=== PATIENT | female | born 1945 | race Caucasian/White ===

== ENCOUNTER 2021-10-01 08:44 | Emergency (ER) | payer MEDICARE, BC ==
[~2021-10-01] VITALS: Ht 160 cm; Wt 86.4 kg
[~2021-10-01 08:44] MED LIST: ASPI-1265 PO; CHOL200012 PO; LOVA20TA2 PO; MULT-1085 PO; SOTA80TA73 PO; VIT-9 PO
[2021-10-01] MEDS ORDERED: ondansetron/PF 4mg/2ml inj IV ONE (11:35)
[2021-10-01] MEDS ORDERED: HYDROcodone/acetaminophen 5mg/325mg tablet PO ONE (11:35)
[2021-10-01] MEDS ORDERED: normal saline 1000ML IV soln IVB ONE (11:35)
[2021-10-01] MEDS ORDERED: iohexol 300mg/ml 100ml inj. ONE (11:54)
[2021-10-01] MEDS ORDERED: HYDR-3964 PO (13:55)
[2021-10-01] MEDS ORDERED: ONDA4TAB6 PO (13:55)
[2021-10-01 13:59] VITALS: BP 176/86
[2021-10-01] MEDS ORDERED: WALKERFR (13:59)
== END 2021-10-01 14:29 | disposition home or self-care (01) ==
LOC: ER 08:45
DX: M25.552 Pain in left hip (principal); M54.50 Low back pain, unspecified; I48.91 Unspecified atrial fibrillation; E11.9 Type 2 diabetes mellitus without complications; Z91.030 Bee allergy status; Z79.82 Long term (current) use of aspirin; Z79.899 Other long term (current) drug therapy; Z79.01 Long term (current) use of anticoagulants; W18.30XA Fall on same level, unspecified, initial encounter; Z91.81 History of falling; Y93.89 Activity, other specified; Y92.89 Other specified places as the place of occurrence of the external cause; Y99.8 Other external cause status
CPT/HCPCS: 73502; 74177; 96374; 99285; J2405; J7030; Q9967

== ENCOUNTER 2022-01-01 12:04 | Emergency (ER) | payer MEDICARE, BC ==
[~2022-01-01] VITALS: Ht 154.9 cm; Wt 86.4 kg
[~2022-01-01 12:04] MED LIST changes: +ONDA4TAB6 PO; +WALKERFR
[2022-01-01 12:20] VITALS: BP 217/75
== END 2022-01-01 14:28 | disposition home or self-care (01) ==
LOC: ER 12:05
DX: J06.9 Acute upper respiratory infection, unspecified (principal); Z20.822 Contact with and (suspected) exposure to COVID-19; R09.89 Other specified symptoms and signs involving the circulatory and respiratory systems; R05.9 Cough, unspecified; I48.91 Unspecified atrial fibrillation; E11.9 Type 2 diabetes mellitus without complications; Z79.82 Long term (current) use of aspirin; Z79.899 Other long term (current) drug therapy
CPT/HCPCS: 71045; 87502; 87503; 87635; 99284; C9803

== ENCOUNTER 2022-11-08 10:36 | Emergency (ER) | payer MEDICARE, BC | END 2022-11-08 11:06 | disposition left against medical advice (07) | LOC: ER 10:36 | DX: H92.09 Otalgia, unspecified ear (principal); Z53.21 Procedure and treatment not carried out due to patient leaving prior to being seen by health care provider ==

== ENCOUNTER 2023-01-14 07:18 | Day surgery (SDC) | payer MEDICARE, BC ==
[2023-01-08 15:13] LABS: BASOPHILS % (AUTO) 0.9 % (0-1); EOSINOPHILS # (AUTO) 0.2 X10'3 (0-0.9); EOSINOPHILS % (AUTO) 2.9 % (0-6); LYMPHOCYTES # (AUTO) 2.2 X10'3 (1.1-4.8); LYMPHOCYTES % (AUTO) 38.7 % (21-51); MEAN CORPUSCULAR HGB CONC 34.3 g/dL (33.0-36.5); MEAN CORPUSCULAR VOLUME 87.7 FL (78-98); MEAN PLATELET VOLUME 6.8 FL (7.4-10.4); MONOCYTES # (AUTO) 0.6 X10'3 (0-0.9); MONOCYTES % (AUTO) 9.7 % (2-12); NEUTROPHILS # (AUTO) 2.7 X10'3 (1.8-7.7); NEUTROPHILS % (AUTO) 47.8 % (42-75); PRE OP HEMOGLOBIN 15.1 g/dL (12.0-16.0); PRE OP PLATELET COUNT 163 X10'3 (140-440); RED BLOOD COUNT 5.02 X10'6 (4.20-5.60); RED CELL DISTRIBUTION WIDTH 12.7 % (11.5-14.5)
[2023-01-08 15:24] LABS: ALBUMIN 3.9 G/DL (3.4-5.0); ALKALINE PHOSPHATASE 67 IU/L (46-116); BLOOD UREA NITROGEN 13 MG/DL (7-18); BUN/CREATININE RATIO 18.1 (10.0-20.0); CALCIUM 9.9 MG/DL (8.5-10.1); CHLORIDE 102 MMOL/L (99-107); CREATININE 0.72 MG/DL (0.40-0.90); PRE OP ALT 31 U/L (30-65); PRE OP ANION GAP 4 (8-16); PRE OP AST 28 U/L (10-37); PRE OP BILIRUB, TOTAL 0.4 MG/DL (0.0-1.0); PRE OP GLUCOSE 96 MG/DL (70-104); PRE OP SODIUM 139 MMOL/L (135-145); TOTAL CARBON DIOXIDE 33.3 MMOL/L (24-32); TOTAL PROTEIN 7.8 G/DL (6.4-8.2); eGFR 79 ML/MIN
[~2023-01-14] VITALS: Ht 154.9 cm; Wt 90.7 kg
[2023-01-14] VITALS (8 sets, daily range): BP systolic 133–180; BP diastolic 63–101
[~2023-01-14 07:18] MED LIST changes: -ASPI-1265 PO; +DOCUMENT DATE & TIME OF BETA-BLOCKER PO ONE; +FLUT16SP26 NS; -LOVA20TA2 PO; -ONDA4TAB6 PO; +RIVA20TA PO; +SIMV-42 PO; -WALKERFR; +cefazolin 2gm/D5W 100mL 100 ML IV ONE; +famotidine 20mg tablet PO ONE; +ringers solution, lacted 1,000 ML IV SCH
[2023-01-14] MEDS ORDERED: morphine 4 MG/ML inj SYRINge IV PRN ×2 (08:40→10:15)
[2023-01-14] MEDS ORDERED: ondansetron/PF 4mg/2ml inj IV PRN ×2 (08:40→10:15)
[2023-01-14] MEDS ORDERED: labetalol 20mg/4ml (5mg/ml) syringe IV PRN ×2 (08:40→10:15)
[2023-01-14] MEDS ORDERED: hydrALAZINE 20mg/ml inj. IV PRN ×2 (08:40→10:15)
[2023-01-14] MEDS ORDERED: morphine 2 MG/ML inj. syringe IV PRN ×2 (08:40→10:15)
[2023-01-14] MEDS ORDERED: fentaNYL/PF 50MCG/1 ML 2ML syringe IV PRN ×4 (08:40→10:15)
[2023-01-14] MEDS ORDERED: ringers solution, lacted 1,000 ML IV SCH ×2 (08:40→10:15)
[2023-01-14] MEDS ORDERED: midazolam 1 mg/ML 2ml injection ONE (09:43)
[2023-01-14] MEDS ORDERED: fentaNYL/PF 50MCG/1 ML 2ML syringe ONE (09:43)
[2023-01-14] MEDS ORDERED: BUPIVAcaine/PF 2.5 mg/ml (0.25%) 30ml vial ONE (09:45)
[2023-01-14] MEDS ORDERED: propofol inj 20 ML IV ONE ×2 (09:45→09:59)
[2023-01-14] MEDS ORDERED: LIDOcaine 2% (20mg/ml) 5ml vial ONE ×2 (09:45→09:59)
[2023-01-14] MEDS ORDERED: LIDOcaine 1% 30ml preserv. free vial ONE (09:45)
[2023-01-14] MEDS ORDERED: dexamethasone sod phosphate 4mg/ml inj. ONE (09:47)
[2023-01-14] MEDS ORDERED: rocuronium 10mg/ml inj IV ONE (09:47)
[2023-01-14] MEDS ORDERED: sevoflurane 250ml liquid IH ONE (09:47)
[2023-01-14] MEDS ORDERED: ondansetron/PF 4mg/2ml inj ONE (09:59)
[2023-01-14] MEDS ORDERED: BUPIVAcaine/PF 2.5 mg/ml (0.25%) 30ml vial IJ ONE (10:15)
[2023-01-14] MEDS ORDERED: glycopyrrolate 0.2mg/ml inj ONE (10:18)
[2023-01-14] MEDS ORDERED: neostigmine methylsulfate 1 MG/ML 10ml vial ONE (10:20)
[2023-01-14] MEDS ORDERED: labetalol 20mg/4ml (5mg/ml) syringe IV ONE (10:46)
--- NOTE | 2023-01-14 10:59 | NUR ---
Received from OR via , accompanied by Anesthesiologist SILVER AND OR NURSE and report given by Anesthesiolgist. PT IS DROWSY YET RESPONDS TO VERBAL STIMULI. DENIES PAIN OR DISCOMFORT. INCISION ON LEFT BUTTOCKS WITH STITCHES AND DERMABOND. VSS Addendum: 01/14/23 at 1243 by Natalie Gonzales RN Amended: Links added.
[2023-01-14] MEDS ORDERED: HYDROcodone/acetaminophen 5mg/325mg tablet PO PRN (11:00)
--- NOTE | 2023-01-14 12:29 | NUR ---
ALL DISCHARGE CRITERIA HAS BEEN MET. VSS, PAIN AT A TOLERABLE LEVEL, VOIDING AND ABLE TO SAFELY AMBULATE AND TRANSFER SELF. IV TAKEN OUT WITHOUT ANY COMPLICATIONS. ALL DISCHARGE INSTRUCTIONS COVERED WITH PATIENT AND ALL QUESTIONS ANSWERED. PATIENT TAKEN OUT VIA WHEELCHAIR TO PERSONAL VEHICLE WHERE FAMILY/FRIEND DROVE PATIENT HOME. Addendum: 01/14/23 at 1247 by Natalie Gonzales RN Amended: Links added.
== END 2023-01-14 12:29 | disposition home or self-care (01) ==
LOC: PAS 07:18
PROVIDERS: ATTEND Surgery
DX: R22.2 Localized swelling, mass and lump, trunk (principal); D17.1 Benign lipomatous neoplasm of skin and subcutaneous tissue of trunk; E66.01 Morbid (severe) obesity due to excess calories; I48.91 Unspecified atrial fibrillation; Z79.899 Other long term (current) drug therapy; Z98.890 Other specified postprocedural states; Z95.0 Presence of cardiac pacemaker
CPT/HCPCS: 21931; 36415; 80053; 82948; 85025; 93005; J0690; J2250; J2405; J2704; J2710; J3010; J3490; J7030; J7120; Z7506; Z7508; Z7512; 88304; A4215; A4618; A7000; J1100

== ENCOUNTER 2024-04-30 06:46 | Day surgery (SDC) | payer MEDICARE, BC ==
[~2024-04-30] VITALS: Ht 154.9 cm; Wt 92.0 kg
[2024-04-30] VITALS (8 sets, daily range): BP systolic 144–232; BP diastolic 46–90; PULSE 70–77; RESP 16; TEMP 97.8; O2SAT 92–96
[2024-04-30] MEDS: normal saline 1000ml 1,000 ML IV SCH (05:30)
[~2024-04-30 06:46] MED LIST changes: -DOCUMENT DATE & TIME OF BETA-BLOCKER PO ONE; -famotidine 20mg tablet PO ONE; -ringers solution, lacted 1,000 ML IV SCH
[2024-04-30] MEDS ORDERED: LOSA25TA41 PO (07:16)
[2024-04-30 07:52] LABS: BASOPHILS # (AUTO) 0.1 X10'3 (0-0.2); BASOPHILS % (AUTO) 0.9 % (0-1); EOSINOPHILS # (AUTO) 0.1 X10'3 (0-0.9); EOSINOPHILS % (AUTO) 2.6 % (0-6); HEMATOCRIT 41.5 % (35.0-45.0); HEMOGLOBIN 14.4 g/dl (12.0-16.0); INR 1.1 INR; LYMPHOCYTES # (AUTO) 1.8 X10'3 (1.1-4.8); MEAN CORPUSCULAR HEMOGLOBIN 30.1 PG (27.0-31.0); MEAN CORPUSCULAR HGB CONC 34.6 g/dL (33.0-36.5); MEAN CORPUSCULAR VOLUME 87.1 FL (78-98); MONOCYTES # (AUTO) 0.5 X10'3 (0-0.9); MONOCYTES % (AUTO) 8.8 % (2-12); NEUTROPHILS # (AUTO) 2.9 X10'3 (1.8-7.7); NEUTROPHILS % (AUTO) 53.7 % (42-75); PLATELET COUNT 164 X10'3 (140-440); RED BLOOD COUNT 4.77 X10'6 (4.20-5.60); RED CELL DISTRIBUTION WIDTH 12.6 % (11.5-14.5); WHITE BLOOD COUNT 5.4 X10'3 (4.5-11.0)
[2024-04-30] MEDS: vancomycin 1,500 MG in NS 300ml IV soln IV ONE (08:00)
[2024-04-30 08:11] LABS: ALBUMIN 3.6 G/DL (3.4-5.0); ANION GAP 8 (8-16); BLOOD UREA NITROGEN 15 MG/DL (7-18); BUN/CREATININE RATIO 20.5 (10.0-20.0); CALCIUM 9.1 MG/DL (8.5-10.1); CHLORIDE 102 MMOL/L (99-107); CREATININE 0.73 MG/DL (0.40-0.90); GLUCOSE 129 MG/DL (70-104); MAGNESIUM 1.7 MG/DL (1.5-2.4); SODIUM 137 MMOL/L (135-145); TOTAL CARBON DIOXIDE 27.1 MMOL/L (24-32); eCRCL 49 ML/MIN; eGFR 77 ML/MIN
[2024-04-30] MEDS ORDERED: fentaNYL/PF 50MCG/1 ML 2ML syringe ONE (08:38)
[2024-04-30] MEDS ORDERED: midazolam 1 mg/ML 2ml injection ONE (08:38)
[2024-04-30] MEDS ORDERED: LIDOcaine 1% w/EPI 1:100,000 inj. MDV 50 ML VIAL ONE (08:38)
[2024-04-30] MEDS ORDERED: vancomycin 1,000mg inj ONE (08:38)
[2024-04-30] MEDS ORDERED: HYDROcodone/acetaminophen 5mg/325mg tablet PO PRN (10:25)
[2024-04-30] MEDS ORDERED: HYDROcodone/acetaminophen 10/325mg tab PO PRN (10:25)
== END 2024-04-30 12:00 | disposition home or self-care (01) ==
LOC: SSTAY O 06:46
PROVIDERS: ATTEND Internal Medicine Cardiovascular Disease
DX: Z45.010 Encounter for checking and testing of cardiac pacemaker pulse generator [battery] (principal); I49.5 Sick sinus syndrome; I25.2 Old myocardial infarction; I10 Essential (primary) hypertension; E78.5 Hyperlipidemia, unspecified; I48.0 Paroxysmal atrial fibrillation; I48.92 Unspecified atrial flutter; Z79.2 Long term (current) use of antibiotics; Z79.899 Other long term (current) drug therapy; Z90.710 Acquired absence of both cervix and uterus; Z98.890 Other specified postprocedural states
CPT/HCPCS: 33228; 36415; 80048; 83735; 85025; 85610; 93005; 99152; 99153; C1785; J2250; J3010; J3370; J3490; J7030

== ENCOUNTER 2025-06-11 09:47 | Emergency (ER) | payer MEDICARE, BC ==
[~2025-06-11] VITALS: Ht 152.4 cm; Wt 91.7 kg
[~2025-06-11 09:47] MED LIST changes: -FLUT16SP26 NS; +LOSA25TA41 PO; -cefazolin 2gm/D5W 100mL 100 ML IV ONE
[2025-06-11 09:50] VITALS: BP 208/99; PULSE 74; RESP 16; O2SAT 97
--- NOTE | 2025-06-11 10:21 | Physician Documentation ---
History of Present Illness ~ Chief Complaint: Eye Pain Stated Complaint: EYE REDNESS Time Seen by MD: 10:07 OK to notify your PCP?: Yes Primary Medical Doctor: WINDY Source: patient Mode of Arrival: POV Exam Limitations: no limitations HPI 79-year-old female presents with left eye redness and pain to the lower portion of the eye for the past 3 days. She states that she was at the gym and using a blow dryer and her hair kept getting stuck in her eye which has been red and painful ever since. She does take Xarelto but has not taken any pain medication for her eye prior to arrival. She denies any vision changes in that eye, itching or drainage. Medication Reconciliation Allergies: Coded Allergies: No Known Drug Allergies (Verified Allergy, Unknown, 01/13/23) Uncoded Allergies: HONEYDEW (Allergy, Severe, THROAT SWELLS, 08/19/16) Scheduled Cholecalciferol (Vitamin D3) (Vitamin D3), 1 CAP PO DAILY, (Reported) Losartan Potassium (Losartan Potassium), 0.5 TAB PO DAILY, (Reported) Multivitamin (Multi Vitamin Daily), 1 TAB PO DAILY, (Reported) Rivaroxaban (Xarelto), 1 TAB PO QPM, (Reported) Simvastatin* (Zocor*), 1 TAB PO HS, (Reported) Sotalol Hcl* (Betapace*), 80 MG PO BID, (Reported) Vit A/C/E AC/Znox/Cupric Oxide (Eye Vitamin-Minerals Tablet), 1 TAB PO DAILY, (Reported) Past Medical History Past Medical History: Atrial Fibrillation, Diabetes Past Surgical History: noncontributory Patient History: (CHF) Congestive heart failure MOTHER, , Age: 89, Cause: Old age ( AGE 89 - HX OF PACEMAKER) FH: Parkinson's disease FATHER, , Age: 80, Cause: Parkinsons disease ( AGE 78 - PNEUMONIA) Alcohol Use: None Drug Use: none Lives with: Spouse Lives In: Home Occupation: retired Review of Systems All Other Systems at this time: Reviewed and Negative Physical Exam Vital Signs: RN Vital Signs have been reviewed: Yes, Temperature: 98.4, Source: Temporal, Heart Rate: 74, Respiratory Rate: 16, BP: 208/99, Pulse Oximetry: 97, Weight: 91.700 Pulse Oximetry Reflects: adequate oxygenation Physical Exam General: Alert, no apparent distress. HEENT: PERRL, EOMI without limitation or complaint of pain, moist mucous membranes. Fluorescein uptake to the inferior portion of the left eye. Injection into the right sclera and subconjunctival hemorrhage to lateral portion of eye. No obvious foreign body or globe disruption. No limitation with upward gaze. Inferior portion of eye pain is relieved with administration of proparacaine. No photophobia, no tearing or drainage. Lashes and lids clear. No periorbital soft tissue swelling, erythema or warmth. Neck: Full range of motion. Respiratory: Lungs clear, no respiratory distress. Chest: No accessory muscle use. Cardiovascular: Regular rate and rhythm, no murmurs. Gastrointestinal: Soft, nontender, nondistended. Bowels sounds present. Extremities: Normal range of motion, no deformity. Neurologic: Oriented x4. Psychiatric: Normal mood and affect. Skin: Normal color, warm and dry. No edema, no ecchymosis. Progress Results/Orders Reviewed/noted all lab results: Yes Results/Orders Orders - RADHIKA JAMES BALLOON DIPPER Proparacaine Ophth Solution (Alcaine Oph (06/11/25 10:10) Vital Signs 06/11/25 09:50 Temp 98.4 Pulse 74 Resp 16 B/P (MAP) 208/99 Pulse Ox 97 Medical Decision Making Additional info obtained from: old records, family Findings 79-year-old female with left eye pain and redness. I did a fluorescein exam with proparacaine in the proparacaine was able to resolve her eye pain and the fluorescein had uptake to the inferior portion of the eye underneath the lower eyelid. I will put her on Cipro her ofloxacin drops which were sent to her pharmacy. 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 Additional Comment Stye, retinal detachment, narrow angle glaucoma, periorbital cellulitis, orbital cellulitis, iritis, uveitis, corneal foreign body, herpes simplex virus, hyphema, bacterial conjunctivitis. Departure Disposition: HOME / SELF CARE / HOMELESS Impression: Primary Impression: Corneal abrasion Discharge Instructions: Corneal Abrasion Additional Instructions: Follow up with your primary care provider or brood hatchery manager within the next 3 days and return back here for any new or worsening symptoms. The redness in your eye will subside with time. Referrals: NO PRIMARY CARE PROVIDER (PCP) Prescriptions Ciprofloxacin Hcl Ophth* (Ciloxan 0.35 Ophth Drops*) 2.5 Ml Bottle 1 DROP LEFTEYE Q6H for 7 Days, #5 ML Prov: RADHIKA JAMES 06/11/25 Education Educated: Patient Educated regarding: diagnosis, treatment, prognosis, need for follow up Additional Comment Medical Screen Exam This patient recieved a medical screening examination. After reviewing the individual's medical complaints with presenting symptoms and performing an appropriate physical examination, it was determined that no immediate life- threatening emergency medical condition is present. This individual is also not a women having contractions. Signature Scribe Signature: . Attestation: Scribed for Radhika James by Radhika Barrera NP . 06/11/25 10:39 Parts of this note were created using [employer] voice recognition software program. While efforts were made to correct any mistakes made by this voice recognition software program, nonsensical phrases may remain in this note. In addition, there may be errors and syntax, grammar, content and spelling. RADHIKA JAMES Jun 11, 2025 10:21
[2025-06-11] MEDS: proparacaine 0.5% ophthalmic drops 15ml LEFTEYE ONE (10:25)
[2025-06-11] MEDS ORDERED: CIPR2.5D21 LEFTEYE (10:38)
[2025-06-11 10:45] VITALS: TEMP 98.4
== END 2025-06-11 10:47 | disposition home or self-care (01) ==
LOC: ER 09:47
DX: S05.02XA Injury of conjunctiva and corneal abrasion without foreign body, left eye, initial encounter (principal); E11.9 Type 2 diabetes mellitus without complications; I48.91 Unspecified atrial fibrillation; I50.9 Heart failure, unspecified; W44.F9XA Other object of natural or organic material, entering into or through a natural orifice, initial encounter; Y93.89 Activity, other specified; Y92.89 Other specified places as the place of occurrence of the external cause; Y99.8 Other external cause status
CPT/HCPCS: 99283